=== PATIENT | male | born 1975 | race Caucasian/White ===

== ENCOUNTER → 2022-10-26 | Outpatient (CLI) | payer BC ==
--- NOTE | 2022-10-26 17:11 | P.PN ---
Subjective DATE: 10/26/2022 I discuss results of sleep studies with patient in details FOLLOW UP VISIT. Patient with obstructive sleep apnea hypopnea syndrome return to sleep center for follow-up visit. Recently patient had sleep study which documented obstructive sleep apnea hypopnea syndrome. Patient was initiated on PAP therapy and today is first visit after treatment was started. Patient was able to use PAP equipment most of the nights. The patient does not have significant problems with the mask, PAP pressure and humidification. [place] sleepiness scale is 8. I checked information from PAP unit. PAP unit pressure 6-13, average 11.1 cm H2O. Usage is 80 % for more then 4 hours, average 5 hours per night. Leak is by 37 l/m. Apnea Hypopnea Index is 0.7, which is normal. MEDICATIONS:1. Pepcid During physical exam: GENERAL: A pleasant patient without any distress. VITAL SIGNS: BP 147/96, HR 92, RR 16, weight 263.0, temperature 98.2, oxygen saturation at room air 96%. HEENT: PERRLA, EOMI.low position of soft palate, [place] 3. NECK: Supple. No JVD. LUNGS: Clear to percussion and to auscultation. Good air exchange. No wheezing or rhonchi. HEART: S1, S2 regular. ABDOMEN: Soft and nontender.[] EXTREMITIES: No clubbing or cyanosis. PANTRY WORKER: Awake, alert, and oriented x3. No focal deficit. Impressions: 1. Obstructive sleep apnea-hypopnea syndrome. Patient demonstrated borderline compliance with treatment, benefiting from treatment. 2. History of Hodgkin disease, status post radiation therapy. 3. History of aortic valve problems. 4. Status post splenectomy. 5. Hypothyroidism. 6. Status post nasal fracture. 7. Obesity. Plan: 1. Continue using PAP equipment every night for the whole night. 2. To change air filter at least 1-2 times per month. 3. PAP unit should stay lower then position of the head. 4. Advised patient to remove all remaining water from humidifier canister daily and make it dry after each usage. Refill canister with fresh distilled water before each usage. 5. Sleep hygiene with regular time in bed for at least 8 hours. 6. Precautions related to driving. No driving if feel any sleepiness. 7. I will maintain prescription for PAP supplies including mask, tube, filters. 8. Follow up visit in 6 months or earlier if patient has any problems. 9. Watching and losing weight. Thank you very much for allowing me to participate in the management of your patient. Jv Sexton MD, PhD, FAASM. Diplomat of [place] [employer], Sleep Medicine Board by [place] [employer] Residential Sales Associate of [facility]
== END ==
LOC: 3 N SLEEP 16:17
PROVIDERS: ATTEND Internal Medicine
DX: G47.33 Obstructive sleep apnea (adult) (pediatric) (principal); E03.9 Hypothyroidism, unspecified; E66.9 Obesity, unspecified; Z99.89 Dependence on other enabling machines and devices; Z85.71 Personal history of Hodgkin lymphoma; Z90.81 Acquired absence of spleen; Z92.3 Personal history of irradiation; Z88.0 Allergy status to penicillin
CPT/HCPCS: 99212